=== PATIENT | female | born 1955 | race Caucasian/White ===

== ENCOUNTER 2019-01-01 14:40 | Outpatient (CLI) | payer OTHER ==
[~2019-01-01 14:40] MED LIST: ASA81 MG PO; COZAAR50 MG PO; GLY OXIDE; GLYPIZIDE; GLYPIZIDE PO; LOPRESSOR25 MG PO; METFORMIN HCL500 MG PO; NABUMETONE500 MG PO; PERCOCET 5/3251 TAB PO; PLAVIX75 MG PO; SINTHROID PO
== END 2019-01-01 14:45 | disposition home or self-care (01) ==
LOC: LAB 14:40 → EKG 14:40 → LAB 14:45
DX: I10 Essential (primary) hypertension (principal)